=== PATIENT | male | born 1945 | race Caucasian/White ===

== ENCOUNTER → 2021-12-23 | Day surgery (SDC) | payer MEDICARE ==
[~2021-12-23] VITALS: Ht 190.5 cm; Wt 124.9 kg
[~2021-12-23] MED LIST: ACETAMINOPHEN500 M1 PO; AMLODIPINE BESYL5 MG PO; COLACE100 MG PO; COZAAR100 MG PO; EUTHYROX125 MCG PO; FARXIGA10 MG PO; GLIMEPIRIDE4 MG PO; HCTZ25 MG PO; JANUVIA 100MG100 MG PO; MOTRIN600 MG PO; OXY-IR 5MG5 MG PO; SIMVASTATIN20 MG PO; SPIRONOLACTONE25 M1 PO; VITAMIN D350 MC3 PO
[2021-12-23 06:50] LABS: HCT 41.8 % (42.0-52.0); HGB 14.3 g/dl (13.2-18.0); MCH 31.6 pg (25.0-31.0); MCHC 34.2 g/dL (32.0-36.0); MCV 92.3 fL (78.0-100.0); MPV 9.4 fL (6.0-9.5); RBC 4.53 M/uL (4.70-6.00); RDW 13.1 % (11.5-14.0); WBC 8.1 K/uL (4.0-10.5)
[2021-12-23 07:35] LABS: ALBUMIN 3.7 g/dL (3.4-5.0); BILIRUBIN - TOTAL 0.5 mg/dL (0.2-1.0); BUN/CREAT RATIO (CALC) 18.8 RATIO; CREATININE 1.81 mg/dL (0.67-1.17); GLOBULIN (CALCULATION) 3.8 g/dL; POTASSIUM 4.4 mmol/L (3.5-5.1); TOTAL PROTEIN 7.5 g/dL (6.4-8.2)
== END | disposition home or self-care (01) ==
LOC: FAS 05:56
PROVIDERS: Student in an Organized Health Care Education/Training Program
DX: K80.10 Calculus of gallbladder with chronic cholecystitis without obstruction (principal); I12.9 Hypertensive chronic kidney disease with stage 1 through stage 4 chronic kidney disease, or unspecified chronic kidney disease; E11.22 Type 2 diabetes mellitus with diabetic chronic kidney disease; N18.9 Chronic kidney disease, unspecified; K21.9 Gastro-esophageal reflux disease without esophagitis; E78.00 Pure hypercholesterolemia, unspecified; E03.9 Hypothyroidism, unspecified; Z79.82 Long term (current) use of aspirin; Z79.84 Long term (current) use of oral hypoglycemic drugs; Z79.899 Other long term (current) drug therapy; Z88.1 Allergy status to other antibiotic agents; Z72.89 Other problems related to lifestyle
CPT/HCPCS: 36415; 80053; 82150; 83690; 93005; J1100; J1335; J1644; J2250; J2370; J2405; J2704; J3010; J7120; Q9967